=== PATIENT | female | born 1975 | race Caucasian/White ===

== ENCOUNTER 2016-10-27 18:26 | Emergency (ER) | payer OTHER ==
[2016-10-27 18:35] VITALS: BP 152/91; PULSE 105; TEMP 98.7; BMI 33.3
[2016-10-27] MEDS ORDERED: SODIUM CHLORIDE 1,000 ML IV STA (18:43)
[2016-10-27] MEDS ORDERED: morphine CARPU-JECT 4 MG/1 ML DISP.SYRIN IVPUSH ONE ×2 (18:43→20:00)
[2016-10-27] MEDS ORDERED: ONDANSETRON 4 MG/2 ML VIAL IVPUSH ONE (18:43)
--- NOTE | 2016-10-27 18:43 | PDOC ---
History of Present Illness - General Chief Complaint: Pain, Acute Stated Complaint: LEFT SIDE PAIN Time Seen by Provider: 10/27/16 18:35 - History of Present Illness Initial Comments: 10/27/16 20:14 Patient is a 41 year old female with a history of kidney stones, HTN who presents with left flank pain. She reports left sided back and flank pain beginning 2 days ago. She states that it resolved momentarily however became more severe today prompting her visit to the ED today. She states that the pain feels similar to her previous kidney stones. She states that she has had recurrent kidney stones over the past 5 years with multiple lithotrypsies and stents placed. She had a parathyroidectomy 1 year ago and has not had a kidney stone since then. She denies fevers, chills, nausea, vomiting, abdominal pain, or changes with bowel movements. She does endorse hematuria. Past History - Past Medical History Allergies/Adverse Reactions: Allergies Allergy/AdvReac Type Severity Reaction Status Date / Time No Known Allergies Allergy Verified 10/27/16 18:28 Home Medications: Ambulatory Orders Cephalexin Monohydrate [Keflex -] 500 mg PO BID #14 capsule 10/27/16 Ondansetron HCl [Zofran] 8 mg PO Q8H PRN #20 tablet 10/27/16 Oxycodone HCl/Acetaminophen [Percocet 5-325 mg Tablet] 1 - 2 tab PO Q6H #20 tab MDD 6 10/27/16 Anemia: No Asthma: No Cancer: No Cardiac Disorders: No CVA: No COPD: No CHF: No Dementia: No Diabetes: No GI Disorders: No Disorders: No HTN: No Hypercholesterolemia: No Kidney Stones: Yes Liver Disease: No Suicide Attempt (Hx): No Seizures: No Thyroid Disease: No - Surgical History Abdominal Surgery: No Appendectomy: No Cardiac Surgery: No Cholecystectomy: No Lung Surgery: No Neurologic Surgery: No Orthopedic Surgery: No - Psycho/Social/Smoking Cessation Hx Anxiety: No Suicidal Ideation: No Smoking Status: No Smoking History: Current every day smoker Years of Tobacco Use: 20 Have you smoked in the past 12 months: Yes Number of Cigarettes Smoked Daily: 2 Information on smoking cessation initiated: No Hx Alcohol Use: No Drug/Substance Use Hx: No Substance Use Type: None Hx Substance Use Treatment: No Review of Systems - Review of Systems Constitutional: No: Chills, Fever Respiratory: No: Cough, Shortness of Breath Cardiac (ROS): No: Chest Pain, Palpitations ABD/GI: No: Constipated, Diarrhea, Nausea, Vomiting : Yes: Hematuria. No: Burning, Dysuria Musculoskeletal: Yes: Back Pain Integumentary: No: Rash Neurological: No: Headache, Numbness, Tingling, Weakness *Physical Exam - Vital Signs Last Vital Signs Temp Pulse Resp BP Pulse Ox 98.7 F 105 H 18 152/91 99 10/27/16 18:29 10/27/16 18:29 10/27/16 18:29 10/27/16 18:29 10/27/16 18:29 - Physical Exam Comments: 10/27/16 20:26 General Appearance: Nourished, Mild Distress HEENT: No Pharyngeal Erythema, Tonsillar Exudate, Tonsillar Erythema Respiratory/Chest: Lungs Clear, Normal Breath Sounds. No Crackles, Rales, Rhonchi, Wheezing Cardiovascular: Regular Rhythm, Regular Rate. No Murmur, Gallop/S3, Gallop/S4 Gastrointestinal/Abdominal: Normal Bowel Sounds, Soft. No Guarding, Rebound, Tenderness Musculoskeletal: No CVA Tenderness Extremity: Normal Capillary Refill Integumentary: Normal Color, Dry, Warm Neurologic: Fully Oriented, Alert, Normal Mood/Affect, Normal Response ED Treatment Course - LABORATORY CBC & Chemistry Diagram: 10/27/16 18:40 10/27/16 18:40 Medical Decision Making - Medical Decision Making 10/27/16 20:27 Patient is a 41 year old female with a history of recurrent kidney stones who presents with left back and flank pain similar to her previous kidney stones. Differential includes but is not limited to: Recurrent kidney stone, pyelonephritis, UTI, metabolic derangement, muscle spasm. Given her history of similar pain and physical exam, it is likely her pain is due to a recurrent kidney stone. Her exam is less concerning for pyelonephritis or UTI and the patient is afebrile making us less concerned for infectious etiologies. We will obtain a cbc, cmp, UA and spiral CT to evaluate. 10/27/16 21:57 CBC, CMP are unremarkable. UA demonstrates wbc of 34 and rbc 51 with 2+ red cells and a few bacteria concerning for possible uti and nephrolethiasis. 10/27/16 21:58 CT preliminarily read by [employer] consultant radiologist as: 2 cm column of multiple small stones in distal left ureter to level of UVJ with associated moderate left hydronephrosis. Small stone(s) right kidney. Unremarkable pancreas and gallbladder. No bowel obstruction, colitis, free fluid or free air. Normal appendix. 2.1 cm dominant follicle right ovary. Prominent nabothian cyst cervix versus hypodense fibroid in lower uterine segment. Bilateral L5 spondylolysis with minimal anterolisthesis L5-S1. THIS DOCUMENT HAS BEEN ELECTRONICALLY SIGNED Evelia Palm M.D. 10/27/2016 20:53 EST 10/27/16 21:58 Patient reports improvement in her symptoms. The stones demonstrated on ct are small and likely will pass on their own. We discussed the results with the patient and feel comfortable discharging the patient home. We stressed the importance of follow up with the patient's urologist and will send her home with percocet for pain management and keflex to treat a possible UTI. The patient voiced understanding and is agreeable with the plan. *DC/Admit/Observation/Transfer Diagnosis at time of Disposition: Kidney stone on left side, Nephrolithiasis - Discharge Dispostion Disposition: HOME Condition at time of disposition: Improved Admit: No - Prescriptions Prescriptions: Cephalexin Monohydrate [Keflex -] 500 mg PO BID #14 capsule Oxycodone HCl/Acetaminophen [Percocet 5-325 mg Tablet] 1 - 2 tab PO Q6H #20 tab MDD 6 Ondansetron HCl [Zofran] 8 mg PO Q8H PRN #20 tablet PRN Reason: Nausea - Referrals Referrals: Gavi Acosta MD [Primary Care Provider] - - Patient Instructions Printed Discharge Instructions: DI for Kidney Stones Additional Instructions: Please return to the ER if you experience concerning or worsening symptoms including fevers or chills or worsening pain. It is important that you call to follow up with your urologist to be reevaluated. We will send you home with percocet and zofran to help with pain management in the meantime as well as keflex for a possible UTI. - Attestations Physician Attestion: 10/27/16 21:44 I, Dr. Chris Messer, attest that this document has been prepared under my direction and personally reviewed by me in its entirety. I further attest, that it accurately reflects all work, treatment, procedures and medical decision -making performed by me.
--- NOTE | 2016-10-27 18:43 | PDOC ---
Attending Attestation - Resident Resident Name: Chris Messer - ED Attending Attestation I have performed the following: I have examined & evaluated the patient, The case was reviewed & discussed with the resident, I agree w/resident's findings & plan, Exceptions are as noted - HPI HPI: 10/27/16 18:50 Left flank pain reminiscent of previous kidney stones, noticed hematuria today too. - Physicial Exam PE: 10/27/16 18:51 NAD, Nontoxic, C/o Pain L flank, Soft Abdomen - Medical Decision Making 10/27/16 18:[address] Messer assessment and plan
[2016-10-27 18:52] LABS: BASOPHIL 0.8 % (0-2.0); EOSINOPHIL 4.5 % (0-4.5); MCH 27.4 pg (25.7-33.7); MCHC 33.1 g/dl (32.0-36.0); MEAN CELL VOLUME 82.8 fl (80-96); MEAN PLT VOLUME 8.7 fl (7.5-11.1); NEUTROPHILS 48.4 % (42.8-82.8); PLATELET COUNT 340 K/MM3 (134-434); WHITE BLOOD COUNT 8.1 K/mm3 (4.0-10.0)
[2016-10-27] MEDS ORDERED: KETOROLAC TROMETHAMINE 30 MG/1 ML VIAL IVPUSH ONE (18:54)
[2016-10-27 18:57] LABS: URINE APPEARANCE CLEAR; URINE BILIRUBIN NEGATIVE (NEGATIVE); URINE BLOOD 2+ (NEGATIVE); URINE COLOR LT. YELLOW; URINE GLUCOSE (UA) NEGATIVE (NEGATIVE); URINE KETONE NEGATIVE (NEGATIVE); URINE LEUK ESTERASE NEGATIVE (NEGATIVE); URINE NITRITE NEGATIVE (NEGATIVE); URINE PROTEIN TRACE (NEGATIVE); URINE UROBILINOGEN 0.2 mg/dL (0.2-1.0)
[2016-10-27 19:02] LABS: URINE BACTERIA FEW /hpf (NONE SEEN); URINE HYALINE CAST 1 /lpf; URINE MUCUS RARE; URINE RBC 44 /hpf (0-3); URINE WBC 31 /hpf (3-5)
[2016-10-27] MEDS ORDERED: morphine CARPU-JECT 4 MG/1 ML DISP.SYRIN ONE ×2 (19:02→20:02)
[2016-10-27 19:18] LABS: ALBUMIN 4.1 g/dl (3.4-5.0); ANION GAP 12 (8-16); BILIRUBIN,TOTAL 0.3 mg/dL (0.2-1.0); CALCIUM 9.3 mg/dL (8.5-10.1); CO2 28 mmol/L (21-32); CREATININE 1.1 mg/dL (0.55-1.02); GLUCOSE,RANDOM 111 mg/dL (74-106); SGOT/AST 21 U/L (15-37); SGPT/ALT 33 U/L (12-78); TOT PROT 7.8 g/dl (6.4-8.2)
[2016-10-27 19:19] LABS: ALK PHOS 80 U/L (45-117)
== END 2016-10-27 21:56 | disposition home or self-care (01) ==
LOC: JER 18:26 → SUPCPDRO 18:26 → JER 21:56
PROC: 3E033NZ Introduction of Analgesics, Hypnotics, Sedatives into Peripheral Vein, Percutaneous Approach (ICD-10-PCS; principal; 2016-10-27)
PROC: 3E0333Z Introduction of Anti-inflammatory into Peripheral Vein, Percutaneous Approach (ICD-10-PCS; 2016-10-27)
PROC: 3E033GC Introduction of Other Therapeutic Substance into Peripheral Vein, Percutaneous Approach (ICD-10-PCS; 2016-10-27)
PROC: 3E0337Z Introduction of Electrolytic and Water Balance Substance into Peripheral Vein, Percutaneous Approach (ICD-10-PCS; 2016-10-27)
DX: N20.0 Calculus of kidney (principal)
CPT/HCPCS: 36415; 74176; 80053; 81003; 81015; 84703; 85025; 99282-25

== ENCOUNTER 2020-02-15 14:47 | Emergency (ER) | payer BC, OTHER ==
[2020-02-15 15:06] VITALS: BP 133/75; PULSE 90; BMI 27.6
[2020-02-15 15:31] LABS: HCG,QUALITATIVE URINE Negative
[2020-02-15 15:34] LABS: EPI CELLS 14 /uL (0-25.1); HYALINE CASTS 1 /uL (0-3.1); URINE APPEARANCE CLEAR; URINE BILIRUBIN 1+ (NEGATIVE); URINE COLOR ORANGE; URINE GLUCOSE (UA) NEGATIVE (NEGATIVE); URINE KETONE NEGATIVE (NEGATIVE); URINE LEUK ESTERASE 1+ (NEGATIVE); URINE NITRITE POSITIVE (NEGATIVE); URINE PROTEIN NEGATIVE (NEGATIVE); URINE RBC 15 /uL (0-23.9); URINE WBC 15 /uL (0-25.8)
== END 2020-02-15 15:53 | disposition home or self-care (01) ==
LOC: JER 14:47
DX: N30.00 Acute cystitis without hematuria (principal)
CPT/HCPCS: 81003; 84703; 87086; 99284-25